=== PATIENT | female | born 1950 | race Caucasian/White ===

== ENCOUNTER 2023-09-15 15:06 | Emergency (ER) | payer MEDICARE, BC | END 2023-09-15 16:56 | disposition home or self-care (01) | LOC: JD.ED 15:06 | DX: R07.89 Other chest pain (principal); M62.838 Other muscle spasm; I48.91 Unspecified atrial fibrillation; I10 Essential (primary) hypertension; E03.9 Hypothyroidism, unspecified; Z86.16 Personal history of COVID-19; Z79.890 Hormone replacement therapy; Z79.899 Other long term (current) drug therapy | CPT/HCPCS: 71045; 71045-26; 93005; 99285 ==